=== PATIENT | male | born 1970 | race Caucasian/White ===

== ENCOUNTER 2020-01-27 07:57 | Outpatient (CLI) | payer BC, SELFPAY ==
[2020-01-27 08:19] LABS: Hemoglobin A1C 6.8 % (<5.7)
[2020-01-27 09:45] LABS: Anion Gap 6 mmol/L (8-16); Blood Urea Nitrogen 17 mg/dL (7-18); Calcium 8.7 mg/dL (8.5-10.1); Carbon Dioxide 32 mmol/L (21-32); Chloride 102 mmol/L (98-108); Estimated Glomerular Filt Rate > 60; Glucose 139 mg/dL (70-99); Osmolality Calculated 293 mOsm/kg (285-295); Potassium 4.7 mmol/L (3.5-5.1); Sodium 140 mmol/L (136-145)
== END 2020-01-27 07:58 | disposition home or self-care (01) ==
PROVIDERS: PCP Family Medicine; Visit Provider Family Medicine
DX: E11.9 Type 2 diabetes mellitus without complications (principal)
CPT/HCPCS: 36415; 80048; 83036

== ENCOUNTER 2020-05-15 09:28 | Outpatient (CLI) | payer BC, SELFPAY ==
[2020-05-15 09:44] LABS: Basophils Absolute Auto 0.05 K/mm3 (0.00-0.10); Basophils Percent Auto 0.5 % (0.0-1.0); Eosinophils Absolute Auto 0.25 K/mm3 (0.02-0.50); Eosinophils Percent Auto 2.5 % (1.0-6.0); Hematocrit 47.9 % (40.0-54.0); Hemoglobin 15.4 g/dL (14.0-18.0); Immature Granulocyte Absolute 0.05 K/mm3 (0.00-0.00); Immature Granulocyte Percent A 0.5 % (0.0-0.0); Lymphocytes Absolute Auto 1.98 K/mm3 (1.10-4.50); Lymphocytes Percent Auto 19.7 % (18.0-42.0); Mean Corpuscular HGB Conc 32.2 g/dL (32.0-36.0); Mean Corpuscular Volume 90.2 fL (78.0-102.0); Mean Platelet Volume 11.1 fl (8.7-11.0); Monocytes Absolute Auto 0.65 K/mm3 (0.10-0.90); Monocytes Percent Auto 6.5 % (2.0-11.0); Neutrophils Absolute Auto 7.1 K/mm3 (1.7-7.2); Neutrophils Percent Auto 70.3 % (50.0-70.0); Platelet Count Result 209 K/mm3 (150-420); Red Blood Count 5.31 M/mm3 (4.70-6.10); Red Cell Distribution Width 13.7 % (11.6-14.4); White Blood Count 10.1 K/mm3 (4.8-10.8)
[2020-05-15 10:58] LABS: Alanine Aminotransferase 28 U/L (16-63); Albumin Level 4.3 g/dL (3.4-5.0); Alkaline Phosphatase 64 U/L (46-116); Anion Gap 5 mmol/L (8-16); Aspartate Amino Transferase 30 U/L (15-37); Bilirubin,Total 0.3 mg/dL (0.00-1.00); Blood Urea Nitrogen 18 mg/dL (7-18); Calcium 9.2 mg/dL (8.5-10.1); Carbon Dioxide 32 mmol/L (21-32); Chloride 99 mmol/L (98-108); Estimated Glomerular Filt Rate > 60; Glucose 139 mg/dL (70-99); Osmolality Calculated 285 mOsm/kg (285-295); Prostate Specific Antigen 1.3 ng/mL (< OR = 4.0); Sodium 136 mmol/L (136-145); Thyroid Stimulating Hormone 2.49 uIU/mL (0.36-3.74); Total Protein 7.4 g/dL (6.4-8.2)
== END 2020-05-15 09:29 | disposition home or self-care (01) ==
LOC: CHSLAB 09:29
PROVIDERS: PCP Family Medicine; Visit Provider Family Medicine
DX: E11.9 Type 2 diabetes mellitus without complications (principal); Z12.5 Encounter for screening for malignant neoplasm of prostate
CPT/HCPCS: 36415; 80053; 83036; 84153; 84443; 85025; G0103

== ENCOUNTER 2020-09-18 07:44 | Outpatient (CLI) | payer BC, SELFPAY ==
[2020-09-18 07:54] LABS: Basophils Absolute Auto 0.05 K/mm3 (0.00-0.10); Basophils Percent Auto 0.5 % (0.0-1.0); Eosinophils Absolute Auto 0.32 K/mm3 (0.02-0.50); Eosinophils Percent Auto 3.4 % (1.0-6.0); Hematocrit 50.3 % (40.0-54.0); Hemoglobin 16.4 g/dL (14.0-18.0); Immature Granulocyte Absolute 0.05 K/mm3 (0.00-0.00); Immature Granulocyte Percent A 0.5 % (0.0-0.0); Lymphocytes Absolute Auto 1.78 K/mm3 (1.10-4.50); Lymphocytes Percent Auto 19.1 % (18.0-42.0); Mean Corpuscular HGB Conc 32.6 g/dL (32.0-36.0); Mean Corpuscular Hemoglobin 29.2 pg (27.0-31.0); Mean Corpuscular Volume 89.7 fL (78.0-102.0); Mean Platelet Volume 11.1 fl (8.7-11.0); Monocytes Absolute Auto 0.76 K/mm3 (0.10-0.90); Monocytes Percent Auto 8.2 % (2.0-11.0); Neutrophils Absolute Auto 6.3 K/mm3 (1.7-7.2); Neutrophils Percent Auto 68.3 % (50.0-70.0); Platelet Count Result 185 K/mm3 (150-420); Red Blood Count 5.61 M/mm3 (4.70-6.10); Red Cell Distribution Width 13.8 % (11.6-14.4); White Blood Count 9.3 K/mm3 (4.8-10.8)
[2020-09-18 08:17] LABS: Hemoglobin A1C 7.6 % (<5.7)
[2020-09-18 08:51] LABS: Anion Gap 8 mmol/L (8-16); Blood Urea Nitrogen 15 mg/dL (7-18); Calcium 9.4 mg/dL (8.5-10.1); Carbon Dioxide 30 mmol/L (21-32); Chloride 100 mmol/L (98-108); Estimated Glomerular Filt Rate > 60; Glucose 170 mg/dL (70-99); Osmolality Calculated 290 mOsm/kg (285-295); Potassium 4.9 mmol/L (3.5-5.1); Sodium 138 mmol/L (136-145)
== END 2020-09-18 07:45 | disposition home or self-care (01) ==
LOC: CHSLAB 07:46
PROVIDERS: PCP Family Medicine; Visit Provider Family Medicine
DX: E11.9 Type 2 diabetes mellitus without complications (principal)
CPT/HCPCS: 36415; 80048; 83036; 85025

== ENCOUNTER 2021-03-05 08:23 | Outpatient (CLI) | payer BC, SELFPAY ==
[2021-03-05 08:42] LABS: Hematocrit 52.9 % (40.0-54.0); Hemoglobin 16.8 g/dL (14.0-18.0); Mean Corpuscular HGB Conc 31.8 g/dL (32.0-36.0); Mean Corpuscular Hemoglobin 28.9 pg (27.0-31.0); Mean Platelet Volume 11.1 fl (8.7-11.0); Platelet Count Result 196 K/mm3 (150-420); Red Blood Count 5.81 M/mm3 (4.70-6.10); Red Cell Distribution Width 13.6 % (11.6-14.4); White Blood Count 10.4 K/mm3 (4.8-10.8)
[2021-03-05 08:54] LABS: Hemoglobin A1C 7.7 % (<5.7)
[2021-03-05 09:59] LABS: Anion Gap 7 mmol/L (8-16); Blood Urea Nitrogen 15 mg/dL (7-18); Calcium 9.7 mg/dL (8.5-10.1); Carbon Dioxide 31 mmol/L (21-32); Chloride 100 mmol/L (98-108); Cholesterol 202 mg/dL (0-200); Estimated Glomerular Filt Rate > 60; Glucose 153 mg/dL (70-99); HDL Direct 37 mg/dL (40-60); LDL Cholesterol Calculated 97 mg/dL (<130); Osmolality Calculated 289 mOsm/kg (285-295); Sodium 138 mmol/L (136-145); Triglycerides 342 mg/dL (0-150)
[2021-03-05 15:25] LABS: Basophils Absolute Auto 0.06 K/mm3 (0.00-0.10); Basophils Percent Auto 0.6 % (0.0-1.0); Eosinophils Absolute Auto 0.32 K/mm3 (0.02-0.50); Eosinophils Percent Auto 3.2 % (1.0-6.0); Immature Granulocyte Absolute 0.05 K/mm3 (0.00-0.00); Immature Granulocyte Percent A 0.5 % (0.0-0.0); Lymphocytes Absolute Auto 1.79 K/mm3 (1.10-4.50); Lymphocytes Percent Auto 18.1 % (18.0-42.0); Monocytes Absolute Auto 0.76 K/mm3 (0.10-0.90); Monocytes Percent Auto 7.7 % (2.0-11.0); Neutrophils Absolute Auto 6.9 K/mm3 (1.7-7.2); Neutrophils Percent Auto 69.9 % (50.0-70.0)
== END 2021-03-05 08:24 | disposition home or self-care (01) ==
LOC: CHSLAB 08:26
PROVIDERS: PCP Family Medicine; Visit Provider Family Medicine
DX: E11.9 Type 2 diabetes mellitus without complications (principal); E78.2 Mixed hyperlipidemia
CPT/HCPCS: 36415; 80048; 80061; 83036; 85025; 85027

== ENCOUNTER 2021-07-23 08:29 | Outpatient (CLI) | payer BC, SELFPAY ==
[2021-07-23 08:42] LABS: Basophils Absolute Auto 0.05 K/mm3 (0.00-0.10); Basophils Percent Auto 0.6 % (0.0-1.0); Eosinophils Absolute Auto 0.42 K/mm3 (0.02-0.50); Eosinophils Percent Auto 4.6 % (1.0-6.0); Hematocrit 51.9 % (40.0-54.0); Hemoglobin 16.6 g/dL (14.0-18.0); Immature Granulocyte Absolute 0.04 K/mm3 (0.00-0.00); Immature Granulocyte Percent A 0.4 % (0.0-0.0); Lymphocytes Absolute Auto 1.78 K/mm3 (1.10-4.50); Lymphocytes Percent Auto 19.6 % (18.0-42.0); Mean Corpuscular Hemoglobin 29.5 pg (27.0-31.0); Mean Corpuscular Volume 92.3 fL (78.0-102.0); Mean Platelet Volume 10.8 fl (8.7-11.0); Monocytes Absolute Auto 0.73 K/mm3 (0.10-0.90); Neutrophils Absolute Auto 6.1 K/mm3 (1.7-7.2); Neutrophils Percent Auto 66.8 % (50.0-70.0); Platelet Count Result 197 K/mm3 (150-420); Red Blood Count 5.62 M/mm3 (4.70-6.10); Red Cell Distribution Width 13.5 % (11.6-14.4); White Blood Count 9.1 K/mm3 (4.8-10.8)
[2021-07-23 09:06] LABS: Hemoglobin A1C 7.4 % (<5.7)
[2021-07-23 09:30] LABS: Alanine Aminotransferase 43 U/L (16-63); Albumin Level 3.9 g/dL (3.4-5.0); Alkaline Phosphatase 67 U/L (46-116); Anion Gap 9 mmol/L (8-16); Aspartate Amino Transferase 16 U/L (15-37); Bilirubin,Total 0.2 mg/dL (0.00-1.00); Blood Urea Nitrogen 14 mg/dL (7-18); Calcium 8.8 mg/dL (8.5-10.1); Carbon Dioxide 28 mmol/L (21-32); Chloride 102 mmol/L (98-108); Estimated Glomerular Filt Rate > 60; Glucose 187 mg/dL (70-99); Osmolality Calculated 293 mOsm/kg (285-295); Potassium 5.3 mmol/L (3.5-5.1); Prostate Specific Antigen 1.7 ng/mL (< OR = 4.0); Sodium 139 mmol/L (136-145); Total Protein 6.9 g/dL (6.4-8.2)
== END 2021-07-23 08:30 | disposition home or self-care (01) ==
LOC: CHSLAB 08:31
PROVIDERS: PCP Family Medicine; Visit Provider Family Medicine
DX: E11.42 Type 2 diabetes mellitus with diabetic polyneuropathy (principal); Z12.5 Encounter for screening for malignant neoplasm of prostate
CPT/HCPCS: 36415; 80053; 83036; 84153; 85025; G0103

== ENCOUNTER 2021-12-17 08:41 | Outpatient (CLI) | payer BC, SELFPAY ==
[2021-12-17 09:04] LABS: Basophils Absolute Auto 0.06 K/mm3 (0.00-0.10); Basophils Percent Auto 0.6 % (0.0-1.0); Eosinophils Absolute Auto 0.17 K/mm3 (0.02-0.50); Eosinophils Percent Auto 1.8 % (1.0-6.0); Hemoglobin 16.1 g/dL (14.0-18.0); Immature Granulocyte Absolute 0.04 K/mm3 (0.00-0.00); Immature Granulocyte Percent A 0.4 % (0.0-0.0); Lymphocytes Absolute Auto 1.78 K/mm3 (1.10-4.50); Lymphocytes Percent Auto 18.9 % (18.0-42.0); Mean Corpuscular HGB Conc 32.9 g/dL (32.0-36.0); Mean Corpuscular Hemoglobin 30.1 pg (27.0-31.0); Mean Corpuscular Volume 91.6 fL (78.0-102.0); Mean Platelet Volume 11.4 fl (8.7-11.0); Monocytes Percent Auto 7.4 % (2.0-11.0); Neutrophils Absolute Auto 6.7 K/mm3 (1.7-7.2); Neutrophils Percent Auto 70.9 % (50.0-70.0); Platelet Count Result 207 K/mm3 (150-420); Red Blood Count 5.35 M/mm3 (4.70-6.10); Red Cell Distribution Width 13.2 % (11.6-14.4); White Blood Count 9.4 K/mm3 (4.8-10.8)
[2021-12-17 09:13] LABS: Hemoglobin A1C 7.7 % (<5.7)
[2021-12-17 09:14] LABS: Anion Gap 7 mmol/L (8-16); Blood Urea Nitrogen 14 mg/dL (7-18); Calcium 9.1 mg/dL (8.5-10.1); Carbon Dioxide 27 mmol/L (21-32); Chloride 100 mmol/L (98-108); Estimated Glomerular Filt Rate > 60; Glucose 167 mg/dL (70-99); Osmolality Calculated 282 mOsm/kg (285-295); Potassium 4.7 mmol/L (3.5-5.1); Sodium 134 mmol/L (136-145)
== END 2021-12-17 08:42 | disposition home or self-care (01) ==
LOC: CHSLAB 08:42
PROVIDERS: PCP Family Medicine; Visit Provider Family Medicine
DX: E11.42 Type 2 diabetes mellitus with diabetic polyneuropathy (principal)
CPT/HCPCS: 36415; 80048; 83036; 85025

== ENCOUNTER 2022-05-20 09:03 | Outpatient (CLI) | payer BC, SELFPAY ==
[2022-05-20 09:34] LABS: Basophils Absolute Auto 0.03 K/mm3 (0.00-0.10); Basophils Percent Auto 0.4 % (0.0-1.0); Eosinophils Absolute Auto 0.27 K/mm3 (0.02-0.50); Eosinophils Percent Auto 3.3 % (1.0-6.0); Hematocrit 48.3 % (40.0-54.0); Hemoglobin 15.8 g/dL (14.0-18.0); Immature Granulocyte Absolute 0.04 K/mm3 (0.00-0.00); Immature Granulocyte Percent A 0.5 % (0.0-0.0); Lymphocytes Absolute Auto 1.82 K/mm3 (1.10-4.50); Lymphocytes Percent Auto 22.2 % (18.0-42.0); Mean Corpuscular HGB Conc 32.7 g/dL (32.0-36.0); Mean Corpuscular Hemoglobin 30.3 pg (27.0-31.0); Mean Corpuscular Volume 92.7 fL (78.0-102.0); Mean Platelet Volume 11.1 fl (8.7-11.0); Monocytes Absolute Auto 0.66 K/mm3 (0.10-0.90); Monocytes Percent Auto 8.1 % (2.0-11.0); Neutrophils Absolute Auto 5.4 K/mm3 (1.7-7.2); Neutrophils Percent Auto 65.5 % (50.0-70.0); Platelet Count Result 182 K/mm3 (150-420); Red Blood Count 5.21 M/mm3 (4.70-6.10); Red Cell Distribution Width 13.2 % (11.6-14.4); White Blood Count 8.2 K/mm3 (4.8-10.8)
[2022-05-20 09:44] LABS: Creatinine Urine 30.28 mg/dL (40-278); MALB Creatinine Ratio 114.5 mg/g (0-30); Microalbumin Urine Random 34.7 mg/L
[2022-05-20 09:46] LABS: Hemoglobin A1C 9.2 % (<5.7)
[2022-05-20 10:14] LABS: Alanine Aminotransferase 51 U/L (16-63); Alkaline Phosphatase 64 U/L (46-116); Anion Gap 8 mmol/L (8-16); Aspartate Amino Transferase 21 U/L (15-37); Bilirubin,Total 0.4 mg/dL (0.00-1.00); Blood Urea Nitrogen 11 mg/dL (7-18); Calcium 9.2 mg/dL (8.5-10.1); Carbon Dioxide 30 mmol/L (21-32); Chloride 102 mmol/L (98-108); Cholesterol 169 mg/dL (0-200); Estimated Glomerular Filt Rate > 60; Glucose 164 mg/dL (70-99); HDL Direct 39 mg/dL (40-60); LDL Cholesterol Calculated 96 mg/dL (<130); Osmolality Calculated 293 mOsm/kg (285-295); Potassium 5.1 mmol/L (3.5-5.1); Sodium 140 mmol/L (136-145); Total Protein 6.9 g/dL (6.4-8.2); Triglycerides 170 mg/dL (0-150)
== END 2022-05-20 09:04 | disposition home or self-care (01) ==
LOC: CHSLAB 09:06
PROVIDERS: PCP Family Medicine; Visit Provider Family Medicine
DX: E11.42 Type 2 diabetes mellitus with diabetic polyneuropathy (principal); E78.2 Mixed hyperlipidemia
CPT/HCPCS: 36415; 80053; 80061; 82043; 83036; 85025

== ENCOUNTER 2022-08-26 08:17 | Outpatient (CLI) | payer BC, SELFPAY ==
[2022-08-26 08:35] LABS: Appearance Urine Clear (Clear); Basophils Absolute Auto 0.05 K/mm3 (0.00-0.10); Basophils Percent Auto 0.5 % (0.0-1.0); Bilirubin Urine Negative (Negative); Blood Urine Negative (Negative); Color Urine Light Yellow (Yellow); Eosinophils Absolute Auto 0.25 K/mm3 (0.02-0.50); Eosinophils Percent Auto 2.7 % (1.0-6.0); Glucose Urine UA Negative (Negative); Hematocrit 51.3 % (40.0-54.0); Hemoglobin 16.7 g/dL (14.0-18.0); Immature Granulocyte Absolute 0.04 K/mm3 (0.00-0.00); Immature Granulocyte Percent A 0.4 % (0.0-0.0); Ketones Urine Negative (Negative); Leukocyte Esterase Ur Negative (Negative); Lymphocytes Absolute Auto 1.69 K/mm3 (1.10-4.50); Mean Corpuscular HGB Conc 32.6 g/dL (32.0-36.0); Mean Corpuscular Volume 92.1 fL (78.0-102.0); Mean Platelet Volume 11.2 fl (8.7-11.0); Monocytes Absolute Auto 0.69 K/mm3 (0.10-0.90); Monocytes Percent Auto 7.3 % (2.0-11.0); Neutrophils Absolute Auto 6.7 K/mm3 (1.7-7.2); Neutrophils Percent Auto 71.1 % (50.0-70.0); Nitrate Urine Negative (Negative); Platelet Count Result 196 K/mm3 (150-420); Protein Urine Negative (Negative); Red Blood Count 5.57 M/mm3 (4.70-6.10); Red Cell Distribution Width 13.6 % (11.6-14.4); Urobilinogen Urine 0.2 mg/dL (0.2-1.0); White Blood Count 9.4 K/mm3 (4.8-10.8)
[2022-08-26 08:51] LABS: Hemoglobin A1C 8.8 % (<5.7)
[2022-08-26 08:54] LABS: Add Urine Microscopic? NO
[2022-08-26 09:42] LABS: Anion Gap 8 mmol/L (8-16); Blood Urea Nitrogen 13 mg/dL (7-18); Calcium 9.4 mg/dL (8.5-10.1); Carbon Dioxide 30 mmol/L (21-32); Chloride 99 mmol/L (98-108); Estimated Glomerular Filt Rate > 60; Glucose 182 mg/dL (70-99); Osmolality Calculated 289 mOsm/kg (285-295); Potassium 5.3 mmol/L (3.5-5.1); Sodium 137 mmol/L (136-145); Thyroid Stimulating Hormone 1.98 uIU/mL (0.36-3.74)
== END 2022-08-26 08:18 | disposition home or self-care (01) ==
LOC: CHSLAB 08:18
PROVIDERS: PCP Family Medicine; Visit Provider Family Medicine
DX: E11.42 Type 2 diabetes mellitus with diabetic polyneuropathy (principal)
CPT/HCPCS: 36415; 80048; 81003; 83036; 84443; 85025

== ENCOUNTER 2022-12-16 08:16 | Outpatient (CLI) | payer BC, SELFPAY ==
[2022-12-16 08:36] LABS: Basophils Absolute Auto 0.05 K/mm3 (0.00-0.10); Basophils Percent Auto 0.6 % (0.0-1.0); Eosinophils Absolute Auto 0.12 K/mm3 (0.02-0.50); Eosinophils Percent Auto 1.3 % (1.0-6.0); Hematocrit 55.2 % (40.0-54.0); Immature Granulocyte Absolute 0.04 K/mm3 (0.00-0.00); Immature Granulocyte Percent A 0.4 % (0.0-0.0); Lymphocytes Percent Auto 15.6 % (18.0-42.0); Mean Corpuscular HGB Conc 32.6 g/dL (32.0-36.0); Mean Corpuscular Hemoglobin 30.1 pg (27.0-31.0); Mean Corpuscular Volume 92.2 fL (78.0-102.0); Mean Platelet Volume 11.1 fl (8.7-11.0); Monocytes Absolute Auto 0.61 K/mm3 (0.10-0.90); Monocytes Percent Auto 6.8 % (2.0-11.0); Neutrophils Absolute Auto 6.8 K/mm3 (1.7-7.2); Neutrophils Percent Auto 75.3 % (50.0-70.0); Platelet Count Result 189 K/mm3 (150-420); Red Blood Count 5.99 M/mm3 (4.70-6.10); Red Cell Distribution Width 13.7 % (11.6-14.4)
[2022-12-16 08:55] LABS: Hemoglobin A1C 7.7 % (<5.7)
[2022-12-16 09:20] LABS: Anion Gap 10 mmol/L (8-16); Blood Urea Nitrogen 23 mg/dL (7-18); Calcium 9.4 mg/dL (8.5-10.1); Carbon Dioxide 27 mmol/L (21-32); Chloride 102 mmol/L (98-108); Estimated Glomerular Filt Rate > 60; Glucose 128 mg/dL (70-99); Osmolality Calculated 293 mOsm/kg (285-295); Sodium 139 mmol/L (136-145); Thyroid Stimulating Hormone 2.05 uIU/mL (0.36-3.74)
== END 2022-12-16 08:17 | disposition home or self-care (01) ==
LOC: CHSLAB 08:18
PROVIDERS: PCP Family Medicine; Visit Provider Family Medicine
DX: E11.9 Type 2 diabetes mellitus without complications (principal)
CPT/HCPCS: 36415; 80048; 83036; 84443; 85025

== ENCOUNTER 2023-04-11 08:54 | Outpatient (CLI) | payer BC, SELFPAY ==
[2023-04-11 09:27] LABS: Basophils Absolute Auto 0.07 K/mm3 (0.00-0.10); Basophils Percent Auto 0.6 % (0.0-1.0); Eosinophils Absolute Auto 0.59 K/mm3 (0.02-0.50); Eosinophils Percent Auto 5.4 % (1.0-6.0); Hematocrit 54.6 % (40.0-54.0); Hemoglobin 17.8 g/dL (14.0-18.0); Immature Granulocyte Absolute 0.06 K/mm3 (0.00-0.00); Immature Granulocyte Percent A 0.6 % (0.0-0.0); Lymphocytes Absolute Auto 1.57 K/mm3 (1.10-4.50); Lymphocytes Percent Auto 14.5 % (18.0-42.0); Mean Corpuscular HGB Conc 32.6 g/dL (32.0-36.0); Mean Corpuscular Volume 91.9 fL (78.0-102.0); Mean Platelet Volume 11.3 fl (8.7-11.0); Monocytes Absolute Auto 0.79 K/mm3 (0.10-0.90); Monocytes Percent Auto 7.3 % (2.0-11.0); Neutrophils Absolute Auto 7.8 K/mm3 (1.7-7.2); Neutrophils Percent Auto 71.6 % (50.0-70.0); Platelet Count Result 172 K/mm3 (150-420); Red Blood Count 5.94 M/mm3 (4.70-6.10); Red Cell Distribution Width 15.1 % (11.6-14.4); White Blood Count 10.9 K/mm3 (4.8-10.8)
[2023-04-11 09:34] LABS: Creatinine Urine 14.45 mg/dL (40-278); MALB Creatinine Ratio 122.4 mg/g (0-30); Microalbumin Urine Random 17.7 mg/L
[2023-04-11 09:35] LABS: Hemoglobin A1C 6.4 % (<5.7)
[2023-04-11 10:11] LABS: Alanine Aminotransferase 33 U/L (16-63); Albumin Level 4.3 g/dL (3.4-5.0); Alkaline Phosphatase 80 U/L (46-116); Anion Gap 5 mmol/L (8-16); Bilirubin,Total 0.6 mg/dL (0.00-1.00); Blood Urea Nitrogen 13 mg/dL (7-18); Calcium 9.5 mg/dL (8.5-10.1); Carbon Dioxide 31 mmol/L (21-32); Chloride 98 mmol/L (98-108); Estimated Glomerular Filt Rate > 60; Glucose 130 mg/dL (70-99); Osmolality Calculated 280 mOsm/kg (285-295); Potassium 4.4 mmol/L (3.5-5.1); Prostate Specific Antigen 2.7 ng/mL (< OR = 4.0); Sodium 134 mmol/L (136-145); Total Protein 7.1 g/dL (6.4-8.2)
[2023-04-11 10:22] LABS: Aspartate Amino Transferase 15 U/L (15-37)
== END 2023-04-11 08:55 | disposition home or self-care (01) ==
LOC: CHSLAB 08:56
PROVIDERS: PCP Family Medicine; Visit Provider Family Medicine
DX: E11.9 Type 2 diabetes mellitus without complications (principal); Z12.5 Encounter for screening for malignant neoplasm of prostate
CPT/HCPCS: 36415; 80053; 82043; 83036; 84153; 85025; G0103

== ENCOUNTER 2023-07-15 08:47 | Outpatient (CLI) | payer BC, SELFPAY ==
[2023-07-15 09:29] LABS: Basophils Absolute Auto 0.07 K/mm3 (0.00-0.10); Basophils Percent Auto 0.6 % (0.0-1.0); Eosinophils Absolute Auto 0.58 K/mm3 (0.02-0.50); Eosinophils Percent Auto 4.6 % (1.0-6.0); Hematocrit 56.2 % (40.0-54.0); Hemoglobin 18.8 g/dL (14.0-18.0); Immature Granulocyte Absolute 0.04 K/mm3 (0.00-0.00); Immature Granulocyte Percent A 0.3 % (0.0-0.0); Lymphocytes Percent Auto 16.8 % (18.0-42.0); Mean Corpuscular HGB Conc 33.5 g/dL (32-36); Mean Corpuscular Hemoglobin 30.4 pg (27.0-31.0); Mean Corpuscular Volume 90.8 fL (78.0-102.0); Mean Platelet Volume 10.9 fl (8.7-11.0); Monocytes Absolute Auto 0.91 K/mm3 (0.10-0.90); Monocytes Percent Auto 7.3 % (2.0-11.0); Neutrophils Absolute Auto 8.82 K/mm3 (1.70-7.20); Neutrophils Percent Auto 70.4 % (50.0-70.0); Platelet Count Result 175 K/mm3 (150-420); Red Blood Count 6.19 M/mm3 (4.70-6.10); Red Cell Distribution Width 14.7 % (11.6-14.4); White Blood Count 12.5 K/mm3 (4.8-10.8)
[2023-07-15 09:42] LABS: Hemoglobin A1C 6.3 % (<5.7)
[2023-07-15 11:03] LABS: Anion Gap 9 mmol/L (8-16); Blood Urea Nitrogen 18 mg/dL (7-18); Calcium 9.6 mg/dL (8.5-10.1); Carbon Dioxide 30 mmol/L (21-32); Chloride 102 mmol/L (98-108); Cholesterol 179 mg/dL (0-200); Estimated Glomerular Filt Rate > 60; Glucose 126 mg/dL (70-99); HDL Direct 53 mg/dL (40-60); LDL Cholesterol Calculated 102 mg/dL (<130); Osmolality Calculated 295 mOsm/kg (285-295); Potassium 4.8 mmol/L (3.5-5.1); Sodium 141 mmol/L (136-145); Triglycerides 120 mg/dL (0-150)
== END 2023-07-15 08:48 | disposition home or self-care (01) ==
LOC: CHSLAB 08:49
PROVIDERS: PCP Family Medicine; Visit Provider Family Medicine
DX: E11.9 Type 2 diabetes mellitus without complications (principal); E78.2 Mixed hyperlipidemia
CPT/HCPCS: 36415; 80048; 80061; 83036; 85025

== ENCOUNTER 2023-10-28 08:06 | Outpatient (CLI) | payer BC, SELFPAY ==
[2023-10-28 12:55] LABS: Basophils Absolute Auto 0.05 K/mm3 (0.00-0.10); Basophils Percent Auto 0.5 % (0.0-1.0); Eosinophils Absolute Auto 0.45 K/mm3 (0.02-0.50); Eosinophils Percent Auto 4.8 % (1.0-6.0); Hematocrit 58.7 % (40.0-54.0); Immature Granulocyte Absolute 0.03 K/mm3 (0.00-0.00); Immature Granulocyte Percent A 0.3 % (0.0-0.0); Lymphocytes Percent Auto 18.2 % (18.0-42.0); Mean Corpuscular HGB Conc 32.4 g/dL (32-36); Mean Corpuscular Hemoglobin 30.3 pg (27.0-31.0); Mean Corpuscular Volume 93.5 fL (78.0-102.0); Mean Platelet Volume 12.1 fl (8.7-11.0); Monocytes Absolute Auto 0.77 K/mm3 (0.10-0.90); Monocytes Percent Auto 8.2 % (2.0-11.0); Neutrophils Absolute Auto 6.35 K/mm3 (1.70-7.20); Platelet Count Result 173 K/mm3 (150-420); Red Blood Count 6.28 M/mm3 (4.70-6.10); Red Cell Distribution Width 14.7 % (11.6-14.4); White Blood Count 9.4 K/mm3 (4.8-10.8)
[2023-10-28 13:15] LABS: Alanine Aminotransferase 24 U/L (16-63); Albumin Level 4.1 g/dL (3.4-5.0); Alkaline Phosphatase 68 U/L (46-116); Anion Gap 9 mmol/L (4-12); Aspartate Amino Transferase 16 U/L (15-37); Bilirubin,Total 0.4 mg/dL (0.00-1.00); Blood Urea Nitrogen 14 mg/dL (7-18); Calcium 9.3 mg/dL (8.5-10.1); Carbon Dioxide 28 mmol/L (21-32); Chloride 100 mmol/L (98-108); Estimated Glomerular Filt Rate > 60; Glucose 115 mg/dL (70-99); Osmolality Calculated 285 mOsm/kg (285-295); Potassium 4.8 mmol/L (3.5-5.1); Sodium 137 mmol/L (136-145); Total Protein 7.5 g/dL (6.4-8.2)
[2023-10-28 13:23] LABS: Hemoglobin A1C 6.1 % (<5.7)
== END 2023-10-28 08:07 | disposition home or self-care (01) ==
LOC: CHSLAB 08:07
PROVIDERS: PCP Family Medicine; Visit Provider Family Medicine
DX: E11.9 Type 2 diabetes mellitus without complications (principal)
CPT/HCPCS: 36415; 80053; 83036; 85025

== ENCOUNTER 2024-02-17 08:48 | Outpatient (CLI) | payer BC, SELFPAY ==
[2024-02-17 09:23] LABS: Basophils Absolute Auto 0.06 K/mm3 (0.00-0.10); Basophils Percent Auto 0.7 % (0.0-1.0); Eosinophils Absolute Auto 0.12 K/mm3 (0.02-0.50); Eosinophils Percent Auto 1.5 % (1.0-6.0); Hematocrit 49.4 % (40.0-54.0); Hemoglobin 16.2 g/dL (14.0-18.0); Immature Granulocyte Absolute 0.04 K/mm3 (0.00-0.00); Immature Granulocyte Percent A 0.5 % (0.0-0.0); Lymphocytes Absolute Auto 2.16 K/mm3 (1.10-4.50); Lymphocytes Percent Auto 26.3 % (18.0-42.0); Mean Corpuscular HGB Conc 32.8 g/dL (32-36); Mean Corpuscular Hemoglobin 31.8 pg (27.0-31.0); Mean Corpuscular Volume 97.1 fL (78.0-102.0); Mean Platelet Volume 10.8 fl (8.7-11.0); Monocytes Absolute Auto 0.52 K/mm3 (0.10-0.90); Monocytes Percent Auto 6.3 % (2.0-11.0); Neutrophils Percent Auto 64.7 % (50.0-70.0); Platelet Count Result 235 K/mm3 (150-420); Red Blood Count 5.09 M/mm3 (4.70-6.10); Red Cell Distribution Width 13.6 % (11.6-14.4); White Blood Count 8.2 K/mm3 (4.8-10.8)
[2024-02-17 09:51] LABS: Hemoglobin A1C 6.6 % (<5.7)
[2024-02-17 09:54] LABS: Alanine Aminotransferase 33 U/L (16-63); Alkaline Phosphatase 76 U/L (46-116); Anion Gap 8 mmol/L (4-12); Aspartate Amino Transferase 20 U/L (15-37); Bilirubin,Total 0.5 mg/dL (0.00-1.00); Blood Urea Nitrogen 16 mg/dL (7-18); Calcium 9.3 mg/dL (8.5-10.1); Carbon Dioxide 27 mmol/L (21-32); Chloride 101 mmol/L (98-108); Estimated Glomerular Filt Rate > 60; Glucose 111 mg/dL (70-99); Osmolality Calculated 284 mOsm/kg (285-295); Sodium 136 mmol/L (136-145); Thyroid Stimulating Hormone 2.18 uIU/mL (0.36-3.74); Total Protein 7.6 g/dL (6.4-8.2)
[2024-02-17 10:00] LABS: Potassium 4.7 mmol/L (3.5-5.1)
== END 2024-02-17 08:49 | disposition home or self-care (01) ==
PROVIDERS: PCP Family Medicine; Visit Provider Family Medicine
DX: E11.42 Type 2 diabetes mellitus with diabetic polyneuropathy (principal)
CPT/HCPCS: 36415; 80053; 83036; 84443; 85025

== ENCOUNTER 2024-05-25 07:15 | Outpatient (CLI) | payer BC, SELFPAY ==
--- OUTSIDE RECORDS SUMMARY | 2024-05-25 07:21 | XMS_ITS | Referral Summary ---
Author Organization [facility] Address [address] [place] [address] Care Team Providers Care Wireworker Supervisor Name Role Phone Leroy Culp MD Primary Care Provide r Allergies No known active allergies Medications metFORMIN (GLUCOPHAGE) 1,000 mg tablet Take 1 tablet (1,000 mg total) by mouth 2 (two) times a day with meals Active SITagliptin phosphate (JANUVIA) 100 mg tabletIndicatio ns:type 2 diabetes mellitus Take 1 tablet (100 mg total) by mouth daily Active pravastatin (PRAVACHOL) 20 mg tablet Take 1 tablet (20 mg total) by mouth daily Active lisinopriL (PRINIVIL,ZESTR IL) 5 mg tablet Take 1 tablet (5 mg total) by mouth daily Active ALPRAZolam XR (XANAX XR) 1 mg 24 hr tablet Take 1 tablet (1 mg total) by mouth every evening Active empagliflozin (JARDIANCE) 25 mg tablet 1 tablet (25 mg total) daily Active ascorbic acid (VITAMIN C) 500 mg tablet,chewable Take 1 tablet/chew tab (500 mg total) by mouth 2 (two) times a day 60 tablet/chew tab 3 Active cholecalciferol (VITAMIN D-3) 2000 unit capsule Take 1 capsule (2,000 Units total) by mouth daily 30 capsule 3 Active ondansetron (ZOFRAN) 4 mg tabletIndicatio ns:Prevention of Post-Operative Nausea and Vomiting Take 1 tablet (4 mg total) by mouth every 6 (six) hours as needed for nausea or vomiting 20 tablet 1 3 Active senna-docusate (PERICOLACE) 8.6-50 mg Take 1 tablet by mouth 2 (two) times a day as needed for constipation 30 tablet 1 3 Active HYDROcodone-gary taminophen (NORCO) 5-325 mg per tabletIndicatio ns:Pain Take 1 tablet by mouth every 6 (six) hours as needed for pain 15 tablet 3 Active Active Problems Problem Noted Date Diagnosed Date Carpal tunnel syndrome on left 03/02/2023 Cubital tunnel syndrome on left 03/02/2023 Carpal tunnel syndrome on right 01/10/2023 Cubital tunnel syndrome on right 01/10/2023 Type 1 diabetes mellitus 12/05/2022 Social History Tobacco Use Types Packs/Day Years Used Date Smoking Tobacco: Every Day Cigarettes 0.5 35 Smokeless Tobacco: Never AUDIT-C Answer Date Recorded Q1: How often do you have a drink containing alc ohol? Monthly or less 03/09/2023 Average Number of Drinks Not on file 023 Frequency of Binge Drinking Not on file 12/2022 Personal Safety Answer Date Recorded Have you ever been in or are you currently in a harmful physical or emotional relationship or is someone making you feel afraid or unsafe? Denies 03/09/2023 Sex and Gender Information Value Date Recorded Sex Assigned at Not on file Legal Sex Male 9:11 PM GAME PROTECTOR Gender Identity Not on file Sexual Orientation Not on file Last Filed Vital Signs Vital Sign Reading Time Taken Comments Blood Pressure 128/77 04/11/2023 2:13 PM GAME PROTECTOR Pulse 74 04/11/2023 2:13 PM GAME PROTECTOR Temperature 36.3 ??C (97.3 ??F) 03/09/2023 5:14 PM CS T Respiratory Rate 18 03/09/2023 5:14 PM GAME PROTECTOR Oxygen Saturation 98% 03/09/2023 5:14 PM GAME PROTECTOR Inhaled Oxygen Concentration - - Weight 105.7 kg (233 lb) 04/11/2023 2:13 PM GAME PROTECTOR Height 180.3 cm (5' 11 ) 04/11/2023 2:13 PM GAME PROTECTOR Body Mass Index 32.5 04/11/2023 2:13 PM GAME PROTECTOR Plan of Treatment Not on file Procedures Procedure Name Priority Date/Time Associated Diagnosis Comments HEMOGLOBIN A1C Routine 01/04/2023 2:27 PM CDT Type 1 diabetes mellitus without complication (CMS/HCC) (HCC) from Last 3 Months or Most Recently Relevant to Health Maintenance Results * (ABNORMAL) Hemoglobin A1c (01/04/2023 2:27 PM CDT) Hgb A1C 7.4(H) 4.0 - 5.6 % [facility] FORREST Estimated Average Glucose 166 mg/dL DANNY FORREST Comment: The ADA recommends reporting an estimated Average Glucose (eAG) with all Hemoglobin A1c results using the equation derived from a study of 507 normal and diabetic adults. ??Minority populations were underrepresented and children were not included. ?? (Diabetes Care 31:8551-7033, 2008). ??The eAG is not equivalent to a fasting glucose. Blood 01/04/2023 2:27 PM CDT 01/04/2023 8:27 PM CDT us Piyush Washington MD LAB BLOOD ORDERABLES Final R esult [facility] [id number] [address] Department [place] [address] from Last 3 Months or Most Recently Relevant to Health Maintenance Insurance [facility] [employer] OOS [employer] CHOICE OOS Care Teams Wireworker Supervisor Relationship Specialty Start Date End Date Leroy Culp MD [address] [place], [place] [id number] PCP - General Family Medicine 11/18/22
--- OUTSIDE RECORDS SUMMARY | 2024-05-25 07:21 | XMS_ITS | Clinical Summary ---
Author Organization [facility] Address [address] [place] [address]. [place] [address] [place] [address] Care Team Providers Care Drilling Inspector Name Role Phone Unavailable Primary Care Provider Unavailabl e Social History Tobacco Use Types Packs/Day Years Used Date Smoking Tobacco: Never Assessed Sex and Gender Information Value Date Recorded Sex Assigned at Not on file Legal Sex Male 9:37 PM CDT Gender Identity Not on file Sexual Orientation Not on file Plan of Treatment Health Maintenance Due Date Last Done Comments Colorectal Cancer Screening Colonoscopy (10 Years) 1968 Annual Physical 07/27/1971 Hepatitis C 1986 DTaP, Tdap and Td Vaccines ( 1 - Tdap) 07/27/1987 Hepatitis B Vaccines (1 of 3 - 19+ 3-dose series) 07/27/1987 Zoster Vaccines (1 of 2) 2018 COVID-19 Vaccine (2023-2 5 season) 2023 Influenza Adult (#1) 2024 Meningococcal Vaccine Aged Out No sailaja hansa eligible based on patient's age to complete this topic Pneumococcal Vaccine: Pediat rics (0 to 5 Years) and At-Risk Patients (6 to 64 Years) Aged Out No longer eligible b ased on patient's age to complete this topic RSV Immunizations Under 20 Months Aged Out No longer eligible based on patient's age to complete this topic
--- OUTSIDE RECORDS SUMMARY | 2024-05-25 07:21 | XMS_ITS | Clinical Summary ---
Author Organization [facility] Address [address] [place] [address] Care Team Providers Care Art Editor Name Role Phone Leroy Culp MD Primary [...] right 01/10/2023 Type 1 diabetes mellitus 12/05/2022 Surgical History Surgery Date Site/Laterality Comments ARM SURGERY Left SHOULDER SURGERY Left HEMORRHOID SURGERY CARPAL TUNNEL RELEASE Right ulnar nerve release also Medical History Medical History Date Comments Diabetes mellitus (HCC) Sleep apnea Hypertension Anxiety Hyperlipidemia Social History Tobacco Use Types Packs/Day Years [...] on file Legal Sex Male 9:11 PM DOUBLE BACKER Gender Identity Not on file Sexual Orientation Not on file Obstetrics History Last Filed Vital Signs Vital Sign Reading Time Taken Comments Blood Pressure 128/77 04/11/2023 2:13 PM DOUBLE BACKER Pulse 74 04/11/2023 2:13 PM DOUBLE BACKER Temperature 36.3 ??C (97.3 ??F) 03/09/2023 5:14 PM CS T Respiratory Rate 18 03/09/2023 5:14 PM DOUBLE BACKER Oxygen Saturation 98% 03/09/2023 5:14 PM DOUBLE BACKER Inhaled Oxygen Concentration - - Weight 105.7 kg (233 lb) 04/11/2023 2:13 PM DOUBLE BACKER Height 180.3 cm (5' 11 ) 04/11/2023 2:13 PM DOUBLE BACKER Body Mass Index 32.5 04/11/2023 2:13 PM DOUBLE BACKER Plan of Treatment Health Maintenance Due Date Last Done Comments Albumin Creatinine Ratio, Urine 1968 Colon Cancer Screening-Colonoscopy 1968 Depression Screening 1968 Foot Exam 1968 Hepatitis C Screening 1968 Prostate Cancer Screening-PSA 1968 TSH Level 1968 eGFR 1968 Dilated Eye Exam 1978 Lipid Panel 1978 Hepatitis B Screening 1986 Regular Well Visit/Exam 18-64 1986 Pneumococcal vaccine <65 (2 of 2 - PCV) 02/12/2015 02/12/2014 Zoster Vaccine (1 of 2) 2018 Hemoglobin A1C 07/05/2023 01/04/2023 Covid-19 Vaccine (4 - 2023-2 5 season) 2023 04/08/2021, 07/07/2020, 06/09/2020 Influenza Vaccine (#1) 2023 2, 03/08/2021, 02/07/2020, Additional history exists DTaP/Tdap/Td Vaccine (3 - Td or Tdap) 12/24/2026 12/24/2016, 02/25/2010 Procedures Procedure Name Priority Date/Time Associated Diagnosis [...] children were not included. ?? (Diabetes Care 31:5841-3274, 2008). ??The eAG is not equivalent to a fasting glucose. Blood 01/04/2023 2:27 PM CDT 01/04/2023 8:27 PM CDT Piyush Washington MD LAB [place]OD [place] [id number] [facility] Department [place] [address] from Last 3 Months or Most Recently Relevant to Health Maintenance Insurance [employer] OOS [employer] OOS Care Teams Art Editor Relationship Specialty Start Date End Date Leroy Culp MD [address] [place] [address] PCP - General Family Medicine 11/18/22
[2024-05-25 07:55] LABS: Basophils Absolute Auto 0.07 K/mm3 (0.00-0.10); Basophils Percent Auto 0.5 % (0.0-1.0); Eosinophils Absolute Auto 0.42 K/mm3 (0.02-0.50); Eosinophils Percent Auto 2.8 % (1.0-6.0); Hematocrit 58.7 % (40.0-54.0); Hemoglobin 18.7 g/dL (14.0-18.0); Immature Granulocyte Absolute 0.06 K/mm3 (0.00-0.00); Immature Granulocyte Percent A 0.4 % (0.0-0.0); Lymphocytes Absolute Auto 1.93 K/mm3 (1.10-4.50); Lymphocytes Percent Auto 12.9 % (18.0-42.0); Mean Corpuscular HGB Conc 31.9 g/dL (32-36); Mean Corpuscular Hemoglobin 29.8 pg (27.0-31.0); Mean Corpuscular Volume 93.5 fL (78.0-102.0); Mean Platelet Volume 11.3 fl (8.7-11.0); Neutrophils Absolute Auto 11.55 K/mm3 (1.70-7.20); Neutrophils Percent Auto 77.4 % (50.0-70.0); Platelet Count Result 159 K/mm3 (150-420); Red Blood Count 6.28 M/mm3 (4.70-6.10); White Blood Count 14.9 K/mm3 (4.8-10.8)
[2024-05-25 07:56] LABS: Add Urine Microscopic? NO; Appearance Urine Clear (Clear); Bilirubin Urine Negative (Negative); Blood Urine Trace-intact (Negative); Color Urine Light Yellow (Yellow); Glucose Urine UA 3+ (Negative); Ketones Urine Negative (Negative); Leukocyte Esterase Ur Negative (Negative); Nitrate Urine Negative (Negative); Protein Urine Negative (Negative); Specific Grav Ur 1.015 (1.010-1.020); Urobilinogen Urine 0.2 mg/dL (0.2-1.0); pH Urine 5.5 (5.0-8.0)
[2024-05-25 08:43] LABS: Hemoglobin A1C 6.6 % (<5.7)
[2024-05-25 08:45] LABS: Alanine Aminotransferase 31 U/L (16-63); Albumin Level 4.1 g/dL (3.4-5.0); Alkaline Phosphatase 75 U/L (46-116); Anion Gap 5 mmol/L (4-12); Aspartate Amino Transferase 14 U/L (15-37); Bilirubin,Total 0.4 mg/dL (0.00-1.00); Blood Urea Nitrogen 25 mg/dL (7-18); Calcium 9.4 mg/dL (8.5-10.1); Carbon Dioxide 30 mmol/L (21-32); Chloride 103 mmol/L (98-108); Estimated Glomerular Filt Rate > 60; Glucose 147 mg/dL (70-99); Osmolality Calculated 293 mOsm/kg (285-295); Potassium 5.2 mmol/L (3.5-5.1); Prostate Specific Antigen 2.8 ng/mL (< OR = 4.0); Sodium 138 mmol/L (136-145); Total Protein 6.7 g/dL (6.4-8.2)
[2024-05-25 08:58] LABS: Creatinine Urine 81.03 mg/dL (40-278); MALB Creatinine Ratio 64.6 mg/g (0-30); Microalbumin Urine Random 52.4 mg/L
== END 2024-05-25 07:16 | disposition home or self-care (01) ==
PROVIDERS: PCP Family Medicine; Visit Provider Family Medicine
DX: E11.9 Type 2 diabetes mellitus without complications (principal); Z12.5 Encounter for screening for malignant neoplasm of prostate
CPT/HCPCS: 36415; 80053; 81003; 82043; 83036; 84153; 85025; G0103